=== PATIENT | female | born 1965 | race Asian ===

== ENCOUNTER → 2016-11-07 | Outpatient (CLI) | payer BC ==
[~2016-11-07] VITALS: Ht 160 cm; Wt 92.7 kg
[2016-11-07 12:40] VITALS: BP 167/100
== END ==
LOC: AMSURD 12:36
DX: R00.1 Bradycardia, unspecified (principal)

== ENCOUNTER → 2016-12-19 | Outpatient (CLI) | payer BC ==
[2016-11-07 12:40] VITALS: BP 167/100
== END ==
LOC: LAB 17:39
DX: N76.0 Acute vaginitis (principal)
CPT/HCPCS: Q0111

== ENCOUNTER → 2019-06-14 | Outpatient (CLI) | payer BC ==
[2016-11-07 12:40] VITALS: BP 167/100
[2019-06-14 17:50] LABS: HEMATOCRIT 41.1 % (37.0-47.0); HEMOGLOBIN 13.2 g/dL (12.5-16.0); MEAN CELL VOLUME 92 fl (78-100); MEAN CORPUSCULAR HEMOGLOBIN 30 pg (27-31); MEAN CORPUSCULAR HGB CONC 32 g/dL (33-37); PLATELET COUNT 253 K/mm3 (130-400); RED BLOOD COUNT 4.45 M/mm3 (4.10-5.30); RED CELL DISTRIBUTION WIDTH 12.7 % (11.5-14.5); WHITE BLOOD COUNT 7.5 K/mm3 (4.8-10.8)
[2019-06-14 17:53] LABS: ALBUMIN 4.3 g/dL (3.5-5.0)
[2019-06-14 17:54] LABS: CALCIUM 8.8 mg/dL (8.3-10.5)
[2019-06-14 17:55] LABS: TOTAL PROTEIN 7.7 g/dL (6.4-8.3)
[2019-06-14 17:57] LABS: TOTAL BILIRUBIN 0.3 mg/dL (0.2-1.2)
[2019-06-14 18:03] LABS: LYMPHOCYTE 10 % (20-51); MONOCYTE 10 % (3-10); NEUTROPHILS 74 % (42-75)
== END ==
LOC: AMSURD 17:05
PROVIDERS: Nurse Practitioner
DX: I10 Essential (primary) hypertension (principal); M54.9 Dorsalgia, unspecified

== ENCOUNTER → 2019-06-17 | Outpatient (CLI) | payer BC ==
[2016-11-07 12:40] VITALS: BP 167/100
== END ==
LOC: RAD 16:34
DX: M25.512 Pain in left shoulder (principal)

== ENCOUNTER 2019-07-04 16:00 | Outpatient (RCR) | payer BC ==
[2016-11-07 12:40] VITALS: BP 167/100
== END 2019-07-04 16:30 | disposition still patient (30) ==
LOC: PT 16:00
DX: M25.512 Pain in left shoulder (principal)

== ENCOUNTER → 2021-08-23 | Outpatient (CLI) | payer OTHER ==
[2021-08-23 12:02] LABS: BASO # 0.06 K/mm3 (0.02-0.10); EOS # 1.08 K/mm3 (0.04-0.40); EOS % 11.9 % (1.0-5.0); HEMATOCRIT 41.3 % (37.0-47.0); HEMOGLOBIN 13.6 g/dL (12.5-16.0); LYMPH# 3.09 K/mm3 (1.50-4.00); MEAN CELL VOLUME 93 fl (78-100); MEAN CORPUSCULAR HEMOGLOBIN 31 pg (27-31); MEAN CORPUSCULAR HGB CONC 33 g/dL (33-37); MEAN PLATELET VOLUME 8.9 fl (7.4-10.4); MONO # 0.53 K/mm3 (0.20-0.80); NEU # 4.33 K/mm3 (1.40-6.50); PLATELET COUNT 312 K/mm3 (130-400); RED BLOOD COUNT 4.46 M/mm3 (4.10-5.30); RED CELL DISTRIBUTION WIDTH 12.3 % (11.5-14.5); WHITE BLOOD COUNT 9.1 K/mm3 (4.8-10.8)
[2021-08-23 12:08] LABS: ALBUMIN 4.3 g/dL (3.5-5.0)
[2021-08-23 12:09] LABS: CALCIUM 10.1 mg/dL (8.3-10.5)
[2021-08-23 12:11] LABS: TOTAL PROTEIN 7.4 g/dL (6.4-8.3)
[2021-08-23 12:12] LABS: TOTAL BILIRUBIN 0.6 mg/dL (0.2-1.2)
== END ==
LOC: LAB 11:40
PROVIDERS: Physician Assistant
DX: Z00.00 Encounter for general adult medical examination without abnormal findings (principal); Z13.29 Encounter for screening for other suspected endocrine disorder; Z13.1 Encounter for screening for diabetes mellitus; Z12.39 Encounter for other screening for malignant neoplasm of breast; Z13.820 Encounter for screening for osteoporosis; K90.9 Intestinal malabsorption, unspecified

== ENCOUNTER → 2021-09-23 | Outpatient (CLI) | payer OTHER | LOC: MAMMO 14:36 | DX: Z12.31 Encounter for screening mammogram for malignant neoplasm of breast (principal); Z13.820 Encounter for screening for osteoporosis ==

== ENCOUNTER → 2023-04-29 | Outpatient (CLI) | payer BC | LOC: MAMMO 14:48 | DX: Z12.31 Encounter for screening mammogram for malignant neoplasm of breast (principal) ==